=== PATIENT | female | born 1985 | race Caucasian/White ===

== ENCOUNTER 2016-07-15 10:43 | Emergency (ER) | payer MEDICARE, MEDICAID ==
[2016-07-15 11:06] VITALS: BP 110/52; PULSE 76; TEMP 97.6; BMI 26.1
--- NOTE | 2016-07-15 11:10 | EDPRACDOC ---
- General Information Chief Complaint: Wrist Pain Stated Complaint: RT WRIST/HAND PAIN Time Seen by Provider: 07/15/16 11:02 Information Source: Patient Mode of Arrival: Car Home Medications: Home Medications Clonazepam [Klonopin] 0.5 mg PO .BID SEE COMMENTS PRN 07/29/14 Fluoxetine HCl [Prozac] 60 mg PO .QAM SEE COMMENTS 07/29/14 Cyclobenzaprine HCl [Flexeril] 10 mg PO TID #21 tab 04/24/16 Hydrocodone Bit/Acetaminophen [Hydrocodon-Acetaminophen 5-325] 1 - 2 tab PO Q6H PRN #7 tab 04/24/16 Ketorolac Tromethamine [Toradol] 10 mg PO Q6H PRN #12 tab 04/24/16 Hydrocortisone Valerate [Westcort] 15 gm TP BID #1 tube 07/15/16 Ketoprofen 50 mg PO BID PRN #20 capsule 07/15/16 Allergies/Adverse Reactions: Allergies Allergy/AdvReac Type Severity Reaction Status Date / Time hydromorphone HCl Allergy Severe Hives* Verified 03/25/15 22:08 [From Dilaudid] [facility] Allergy Intermediate Hives* Uncoded 03/25/15 22:08 [employer] Allergy Intermediate Nausea/Vomi Uncoded 03/25/15 22:08 ting - History of Present Illness Onset: last night HPI: PT STATES SHE WOKE UP THIS MORNING WITH PAIN IN RIGHT WRIST, SHARP PAIN, WORSE WITH MOVEMENT, ALSO COMPLAINS OF ITCHING RASH ACROSS UPPER BACK X 1 WEEK. NO KNOWN INJURY OR CONTACT EXPOSURE. PT STATES SHE NOTICED HER WRIST HURTING "A LITTLE" WHILE AT WORK (Headroom) LAST NIGHT. Location: Reports: Dorsal, Ulnar, Radial Dominant Side: Reports: Right Mechanism: Reports: No Injury/Trauma Circumstances: Reports: Unknown Pain Severity: Reports: Moderate Associated Signs and Symptoms: Reports: Hand Pain. Denies: Numbness, Weakness, Forearm Pain, Elbow Pain ED Past Medical History - History Reviewed Yes Nurses notes reviewed and agree except as marked - Patient Medical History Respiratory History: Reports: Asthma Psychological History: Reports: Depression, Anxiety Surgical History: Reports: Appendectomy, Tonsillectomy/Adnoidectomy - Social Medical History Smoking Status: Never smoker EDM Review of Systems - Review of Systems Constitutional: negative: Chills, Fever Neurological: negative: Dizziness, Numbness, Weakness Musculoskeletal: Hand, Wrist Integumentary: Rash - Physical Exam Constitutional: Alert (Awake), No apparent distress Oriented to: Time, Person, Place Last recorded Vital Signs: Last Vital Signs Temp 97.6 F 07/15/16 10:59 Pulse 76 07/15/16 10:59 Resp 16 07/15/16 10:59 BP 110/52 L 07/15/16 10:59 Pulse Ox 96 07/15/16 10:59 Oxygen Pulse Oxygen Saturation 96 O2 Device Room Air Oxygen Flow Rate Fraction of Inspired Oxygen ( FIO2) - HEENT Head: Normal ( normocephalic) - Integumentary Skin: Warm, Dry, Rash (SCATTERED AREAS OF EXOCORIATED LESIONS ACROSS UPPER BACK) - Neurologic Memory Impaired: Normal Motor Function: Normal (Normal tone, Pulses 2+ No cyanosis or edema, FROM) Cranial Nerve: Normal (CN II-X11 intact sensation, strength 5/5) Cerebellar: Normal Mood Description: Normal Perception: Normal ED Wrist Problem Exam Wrist Symptoms: Mild Tenderness. negative: Swelling, Deformity Hand Symptoms: Normal. negative: Swelling Forearm Symptoms: Normal. negative: Swelling, Deformity Distal Function/Circulation: Normal, Capillary Refill. negative: Motor Deficit , Pulse Deficit, Sensory Deficit - Integumentary Skin: Normal ED Wrist Problem MDM - Differential Diagnosis Differential Diagnosis: Arthritis, Sprain Decision Time to Discharge: 11:10 - Departure Disposition: Home Condition: Stable Final Diagnosis: Tendinitis of right wrist Atopic dermatitis Qualifiers: Atopic dermatitis type: unspecified Qualified Code(s): L20.9 - Atopic dermatitis, unspecified Instructions: Wrist Injury (ED) Education/Counseling Given To: Patient Education/Counseling Given Regarding: Diagnosis, Treatment, Prognosis, Follow Up Referrals: Mario Ayala PA [Primary Care Provider] - One Week Prescriptions: Hydrocortisone Valerate [Westcort] 15 gm TP BID #1 tube Ketoprofen 50 mg PO BID PRN #20 capsule PRN Reason: Pain Forms: Excuse Note Additional Instructions: Fracture/Sprain: Elevate affected area as much as possible, apply cold compresses 20 mins at a time as needed for pain or swelling, wear splint until you follow up with orthopedics.
== END 2016-07-15 11:21 | disposition home or self-care (01) ==
LOC: ED 10:43 → EDMC 11:21
DX: L20.9 Atopic dermatitis, unspecified (principal); M77.8 Other enthesopathies, not elsewhere classified; J45.909 Unspecified asthma, uncomplicated; F41.9 Anxiety disorder, unspecified; F32.9 Major depressive disorder, single episode, unspecified
CPT/HCPCS: 99283

== ENCOUNTER 2016-08-16 16:25 | Emergency (ER) | payer MEDICARE, MEDICAID ==
[2016-08-16 16:56] VITALS: BMI 4024.0
[2016-08-16] MEDS ORDERED: NS 1,000 ML IV ONE (17:11)
[2016-08-16] MEDS ORDERED: ONDANSETRON HCL 4 MG/2 ML VIAL IV ONE (17:11)
--- NOTE | 2016-08-16 17:13 | EDPRACDOC ---
- General Information Chief Complaint: Headache Stated Complaint: N/V/D, FEVER Time Seen by Provider: 08/16/16 17:07 Information Source: Patient Mode Of Arrival: Car Home Medications: Home Medications Clonazepam [Klonopin] 0.5 mg PO .BID SEE COMMENTS PRN 07/29/14 Fluoxetine HCl [Prozac] 60 mg PO .QAM SEE COMMENTS 07/29/14 Cyclobenzaprine HCl [Flexeril] 10 mg PO TID #21 tab 04/24/16 Hydrocodone Bit/Acetaminophen [Hydrocodon-Acetaminophen 5-325] 1 - 2 tab PO Q6H PRN #7 tab 04/24/16 Ketorolac Tromethamine [Toradol] 10 mg PO Q6H PRN #12 tab 04/24/16 Hydrocortisone Valerate [Westcort] 15 gm TP BID #1 tube 07/15/16 Ketoprofen 50 mg PO BID PRN #20 capsule 07/15/16 Ibuprofen 600 mg PO Q6H PRN #20 tablet 08/16/16 Oseltamivir Phosphate [Tamiflu] 75 mg PO BID #10 capsule 08/16/16 Promethazine [Phenergan] 25 mg PO Q4-6H PRN #15 tab 08/16/16 Allergies/Adverse Reactions: Allergies Allergy/AdvReac Type Severity Reaction Status Date / Time hydromorphone HCl Allergy Severe Hives* Verified 08/16/16 16:37 [From Dilaudil] [facility] Allergy Intermediate Hives* Uncoded 08/16/16 16:37 [employer] Allergy Intermediate Nausea/Vomi Uncoded 08/16/16 16:37 ting - History of Present Illness Onset: 2 days HPI: Pt c/o headache, chills, fever, earache, sore throat, congestion, cough, abd pain, n/v/d x 2 days. Denies cp, sob, rash. Pt sates she feels dehydrated. Shortness of Breath: None Relevant History of: Reports: None Cough: Reports: Non-productive Rhinorrhea: Reports: Clear Fever Severity/Quality: Reports: low grade Ear Symptoms: Reports: Earache Recently treated infections: Denies: Otitis media, Pneumonia, URI Associated Signs & Symptoms: Reports: Cough, Earache, Fever, Headache, Nasal Symptoms, Sore Throat, Nausea, Vomiting, Diarrhea, Myalgia Oral Intake: Decreased Urinary Output: Normal ED Past Medical History - History Reviewed Yes Nurses notes reviewed and agree except as marked - Patient Medical History Respiratory History: Reports: Asthma Psychological History: Reports: Depression, Anxiety Surgical History: Reports: Appendectomy, Tonsillectomy/Adnoidectomy - Social Medical History Smoking Status: Never smoker ETOH: None Substance Abuse: None EDM Review of Systems - Review of Systems Constitutional: Chills, Fever Eyes: No Symptoms Reported. negative: Redness, Blurred Vision, Double Vision, Discharge, Pain, Light Sensitive, Photophobia Ears: Pain Throat: Pain Nose: Congestion Mouth: No Symptoms Reported. negative: Pain, Drooling Respiratory: Cough Cardiovascular: No Symptoms Reported. negative: Chest Pain, Palpitations, Syncope, Edema, Orthopnea, PND, Skin Mottling, Cyanosis Gastrointestinal: Diarrhea, Nausea, Pain, Vomiting Genitourinary: No Symptoms Reported. negative: Dysuria, Hematuria, Frequency, Discharge, Bleeding, Testicular Pain, Neurological: Dizziness, Headache Musculoskeletal: Other (bodyaches). negative: No Symptoms Reported, Arm, Ankle , Back, Chestwall, Elbow, Forearm, Femur, Foot, Hand, Hip, Knee, Leg, Neck, Pelvis, Ribs, Shoulder, Wrist Integumentary: No Symptoms Reported. negative: Itching, Rash, Bruising, Wound Allergic/Immunologic: No Symptoms Reported. negative: Hives, Itching Hematologic: No Symptoms Reported. negative: Lymphadenopathy, Easy Bruising, Easy Bleeding Psychiatric: No Symptoms Reported - Physical Exam Constitutional: Alert Oriented to: Time, Person, Place Last recorded Vital Signs: Last Vital Signs Temp 99.8 F 08/16/16 16:38 Pulse 99 08/16/16 16:38 Resp 20 08/16/16 16:38 BP 121/56 L 08/16/16 16:38 Pulse Ox 98 08/16/16 16:38 Oxygen Pulse Oxygen Saturation 98 O2 Device Room Air Oxygen Flow Rate Fraction of Inspired Oxygen ( FIO2) - HEENT Head: Normal ( normocephalic) Eye Exam: Normal (PERRL, EOMI, Sclera white) Oropharynx: Normal (Pharynx:Moist without exudate,Gums-no swelling) Tympanic Membrane: Normal ENT EAC: Normal TMJ: Normal Nose: No Symptoms Reported (septum midline) Neck: Normal (FROM, trachea at midline) - Respiratory/Cardiovascular Respiratory: Normal - CTA (BBS clear to auscultation without adventitious sounds ) Cardiovascular: Normal (RRR without murmur, gallop or rub) - GI Auscultation: Normal (NABS) Palpation: Normal (Soft,No rebound or guarding, non distended) Tenderness: Non tender - Musculoskeletal Back: Normal (Non-Tender) Extremities: Normal (Normal tone, Pulses 2+ No cyanosis or edema, FROM) - Integumentary Skin: Normal, Warm, Dry Lymphatics: Normal (no adenopathy) - Neurologic Memory Impaired: Normal Motor Function: Normal (Normal tone, Pulses 2+ No cyanosis or edema, FROM) Mood Description: Normal Perception: Normal - Differential Diagnosis Influenza A B, URI, Viral - Results 08/16/16 17:20 08/16/16 17:20 08/16/16 17:50 Laboratory Results - last 24 hr 08/16/16 08/16/16 08/16/16 17:15 17:15 17:20 WBC RBC Hgb Hct MCV MCH MCHC RDW Plt Count MPV Neut % (Auto) Lymph % (Auto) Charles % (Auto) Eos % (Auto) Baso % (Auto) Absolute Neuts (auto) Absolute Lymphs (auto) Sodium 137 Potassium 4.1 Chloride 101 Carbon Dioxide 27 Anion Gap 13 BUN 11 Creatinine 0.70 Estimated GFR (MDRD) > 60 Glucose 92 Calculated Osmolality 263 L Calcium 9.5 Total Bilirubin 0.8 AST 21 ALT 29 Alkaline Phosphatase 81 Total Protein 7.4 Albumin 4.3 Urine Color Pale yellow Urine Clarity Clear Urine pH 7.0 Ur Specific [place] 1.005 Urine Protein Neg Urine Glucose (UA) Neg Urine Ketones 2+ H Urine Occult Blood 1+ H Urine Nitrite Neg Urine Bilirubin Neg Urine Urobilinogen <2.0 Ur Leukocyte Esterase Neg Urine RBC 2-5 Urine WBC 0-2 Ur Epithelial Cells 1+ Urine Bacteria Few Urine Mucus Occ Urine Test Neg 08/16/16 17:20 WBC 10.3 RBC 4.14 L Hgb 12.9 Hct 36.9 MCV 89 MCH 31.3 MCHC 35.1 RDW 12.8 Plt Count 233 MPV 8.6 Neut % (Auto) 78.3 H Lymph % (Auto) 13.6 L Charles % (Auto) 7.3 Eos % (Auto) 0.3 Baso % (Auto) 0.5 Absolute Neuts (auto) 8.03 Absolute Lymphs (auto) 1.34 Sodium Potassium Chloride Carbon Dioxide Anion Gap BUN Creatinine Estimated GFR (MDRD) Glucose Calculated Osmolality Calcium Total Bilirubin AST ALT Alkaline Phosphatase Total Protein Albumin Urine Color Urine Clarity Urine pH Ur Specific [place] Urine Protein Urine Glucose (UA) Urine Ketones Urine Occult Blood Urine Nitrite Urine Bilirubin Urine Urobilinogen Ur Leukocyte Esterase Urine RBC Urine WBC Ur Epithelial Cells Urine Bacteria Urine Mucus Urine Test Decision Time to Discharge: 17:51 - Departure Disposition: Home Condition: Good Final Diagnosis: Influenza Instructions: Influenza (ED) Education/Counseling Given To: Patient Education/Counseling Given Regarding: Diagnosis, Treatment, Follow Up Referrals: Mario Ayala PA [Primary Care Provider] - One Week Prescriptions: New Ibuprofen 600 mg PO Q6H PRN #20 tablet PRN Reason: Pain Oseltamivir Phosphate [Tamiflu] 75 mg PO BID #10 capsule Promethazine [Phenergan] 25 mg PO Q4-6H PRN #15 tab PRN Reason: Nausea/Vomiting No Action Fluoxetine HCl [Prozac] 60 mg PO .QAM SEE COMMENTS Clonazepam [Klonopin] 0.5 mg PO .BID SEE COMMENTS PRN PRN Reason: Anxiety Cyclobenzaprine HCl [Flexeril] 10 mg PO TID #21 tab Ketorolac Tromethamine [Toradol] 10 mg PO Q6H PRN #12 tab PRN Reason: Pain Hydrocodone Bit/Acetaminophen [Hydrocodon-Acetaminophen 5-325] 1 - 2 tab PO Q6H PRN #7 tab PRN Reason: Pain Hydrocortisone Valerate [Westcort] 15 gm TP BID #1 tube Ketoprofen 50 mg PO BID PRN #20 capsule PRN Reason: Pain Additional Instructions: Drink sips of Gatorade every 2-3 minutes while awake. Do NOT drink large volumes of fluid at once. If you vomit, take the nausea-vomiting medicine prescribed, wait ~ 30 minutes, and restart the sipping process. Return to the Emergency Department if you think you are getting dehydrated, have persistent abdominal pain that is unrelenting, have worse or different symptoms, or any concerns.
[2016-08-16 17:30] LABS: AUTOMATED BASOPHIL 0.5 % (0-2); AUTOMATED EOSINOPHIL 0.3 % (0-5); AUTOMATED LYMPH 13.6 % (17-44); AUTOMATED MONOCYTE 7.3 % (3-10); AUTOMATED NEUTROPHIL 78.3 % (45-76); MPV 8.6 fL (7.4-10.4)
[2016-08-16 17:32] LABS: LEUKOCYTES/URINE NEG (NEGATIVE); NITRITE/URINE NEG (NEGATIVE); URINE OCCULT BLOOD 1+ (NEG/TRACE); WBC/URINE 0-2 (0-5)
[2016-08-16 17:43] LABS: BLOOD UREA NITROGEN 11 MG/DL (7-17); CALCIUM 9.5 MG/DL (8.4-10.2); CALCULATED OSMOLALITY 263 MOs/Kg (270-290); CHLORIDE 101 mEq/L (98-107); GLUCOSE 92 mg/dL (70-99); SODIUM LEVEL 137 mEq/L (137-146); TOTAL PROTEIN 7.4 G/DL (6.3-8.2)
[2016-08-16 18:07] VITALS: BP 95/51; PULSE 96; TEMP 98.1
== END 2016-08-16 18:11 | disposition home or self-care (01) ==
LOC: EDMC 16:25
DX: J11.1 Influenza due to unidentified influenza virus with other respiratory manifestations (principal)
CPT/HCPCS: 36415; 80053; 81001; 81025; 85025; 96361; 96374; 99283; J2405